=== PATIENT | male | born 1980 | race African-American/Black ===

== ENCOUNTER 2024-09-19 13:55 | Emergency (ER) | payer SELFPAY ==
[2024-09-19] MEDS ORDERED: Glucagon,Human Recombinant 1 MG Vial IM PRN (14:03)
[2024-09-19] MEDS ORDERED: 50% Dextrose in Water 50 ML Syringe IVPUSH PRN (14:03)
[2024-09-19] MEDS ORDERED: Morphine 2 MG/ML SYRINGE IVPUSH PRN (14:23)
[2024-09-19] MEDS: Insulin Regular, Human 100 Units/ML 10 ML Vial IVPUSH ONE ×2 (15:54→15:56)
[2024-09-19] MEDS: Diphtheria,Pertussis(Acell),Tetanus Vaccine 0.5 ML Syringe IM ONE (15:54)
[2024-09-19] MEDS: Acetaminophen 500 MG Tab PO ONE (15:55)
[2024-09-19] MEDS: Bacitracin Oint 28.35 GM Tube TOP STA (15:56)
[2024-09-19] MEDS: Ondansetron 4 MG/2 ML SDV IVPUSH ONE (15:56)
[2024-09-19] MEDS: Sodium Chloride 0.9% 1,000 ML IV ONE (15:56)
[2024-09-19 16:10] LABS: BASE EXCESS VENOUS 0.7 (-2.0-3.0); PH,VENOUS 7.41 (7.32-7.43)
[2024-09-19 16:13] LABS: BASOPHILS ABSOLUTE AUTO 0.02 K/uL (0.00-0.20); BASOPHILS PERCENT AUTO 0.3 % (0.0-1.0); EOSINOPHILS ABSOLUTE AUTO 0.04 K/uL (0.00-0.45); EOSINOPHILS PERCENT AUTO 0.6 % (0.0-6.0); HEMATOCRIT 48.6 % (42.0-52.0); HEMOGLOBIN 16.6 g/dL (14.0-18.0); IMMATURE GRAN ABSOLUTE AUTO 0.02 K/uL (0.00-0.05); IMMATURE GRAN PERCENT AUTO 0.3 % (0.0-0.4); LYMPHOCYTES ABSOLUTE AUTO 1.18 K/uL (1.00-4.80); LYMPHOCYTES PERCENT AUTO 17.7 % (24.0-44.0); MEAN CORPUSCULAR HGB CONC 34.2 g/dL (32.0-36.0); MEAN PLATELET VOLUME 11.4 fL (9.4-12.4); MONOCYTES ABSOLUTE AUTO 0.66 K/uL (0.00-0.80); MONOCYTES PERCENT AUTO 9.9 % (0.0-8.0); NEUTROPHILS ABSOLUTE AUTO 4.74 K/uL (1.80-7.70); NEUTROPHILS PERCENT AUTO 71.2 % (41.0-71.0); PLATELET COUNT,PLT 164 K/uL (150-400); RED BLOOD CELL COUNT 5.72 M/uL (4.52-5.90); WHITE BLOOD CELL COUNT,WBC 6.66 K/uL (3.9-11.3)
[2024-09-19 16:27] LABS: INR < 0.93 (0.86-1.11)
[2024-09-19 16:44] LABS: A/G RATIO 1.1 (0.9-1.6); ALANINE AMINOTRANSFERASE,ALT 19 IU/L (14-63); ALBUMIN 4.4 g/dL (3.4-5.0); ALKALINE PHOSPHATASE 162 U/L (46-116); ASPARTATE AMNIOTRANSFERASE,AST 18 IU/L (15-37); BILIRUBIN TOTAL 0.6 mg/dL (0.2-1.0); BLOOD UREA NITROGEN,BUN 10 mg/dL (7.0-18.0); CALCIUM 9.7 mg/dL (8.5-10.1); CARBON DIOXIDE,CO2 22.7 mmol/L (21.0-32.0); CHLORIDE,CL 93 mmol/L (98-107); CREATININE 1.2 mg/dL (0.8-1.3); EST CRCL DRUG DOSING (CG) 86.22 mL/min; GLUCOSE RANDOM 496 mg/dL (74-106); POTASSIUM,K 4.2 mmol/L (3.5-5.1); PROTEIN TOTAL,TP 8.3 g/dL (6.4-8.2); SODIUM,NA 130 mmol/L (136-148)
[2024-09-19 16:45] LABS: ESTIMATED GFR 76 mL/min (>60); ETHANOL BLOOD MEDICAL < 3.0 mg/dL
[2024-09-19 17:51] LABS: HEMOGLOBIN A1C >14.0 %
== END 2024-09-19 19:08 | disposition left against medical advice (07) ==
LOC: MW.ED 13:55
DX: S02.2XXA Fracture of nasal bones, initial encounter for closed fracture (principal); S06.9XAA Unspecified intracranial injury with loss of consciousness status unknown, initial encounter; S00.03XA Contusion of scalp, initial encounter; E11.65 Type 2 diabetes mellitus with hyperglycemia; M54.2 Cervicalgia; S60.511A Abrasion of right hand, initial encounter; S60.512A Abrasion of left hand, initial encounter; Z79.84 Long term (current) use of oral hypoglycemic drugs; Z79.82 Long term (current) use of aspirin; Z79.899 Other long term (current) drug therapy; Z23 Encounter for immunization; Z79.4 Long term (current) use of insulin; Y04.2XXA Assault by strike against or bumped into by another person, initial encounter
CPT/HCPCS: 36415; 70450; 70486; 72125; 80053; 80307; 82803; 82947; 83036; 85025; 85610; 90471; 90715; 99285; A9270; J1815; 99284